=== PATIENT | female | born 2000 | race Caucasian/White ===

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

== ENCOUNTER 2019-12-01 18:13 | Emergency (ER) | payer BC ==
[~2019-12-01] VITALS: Ht 160 cm; Wt 47.6 kg
--- NOTE | 2019-12-01 18:20 | NUR ---
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
--- NOTE | 2019-12-01 18:32 | NUR ---
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
[2019-12-01] MEDS ORDERED: FAMOTIDINE (20 MG) 20 MG TABLET ONE ×2 (18:43→18:46)
[2019-12-01] MEDS ORDERED: DEXAMETHASONE SOD PHOSPHATE 10 MG/ML VIAL ONE (18:43)
[2019-12-01] MEDS: DEXAMETHASONE SOD PHOSPHATE 10 MG/ML VIAL MC ONE (18:48)
[2019-12-01] MEDS: FAMOTIDINE (20 MG) 20 MG TABLET PO ONE (18:48)
[2019-12-01] MEDS ORDERED: EPINEPHRINE (1:1000) 1 MG/ML AMPUL ONE (19:32)
[2019-12-01] MEDS: EPINEPHRINE (1:1000) 1 MG/ML AMPUL IM ONE (19:37)
--- NOTE | 2019-12-01 19:38 | NUR ---
PT TO ER BED 8. 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
--- NOTE | 2019-12-01 19:53 | NUR ---
PT IN BED 11OX4. NO NOTED RESP DISTRESS. BREATHING EVEN AND UNLABORED.
--- NOTE | 2019-12-01 20:45 | NUR ---
Patient discharged to home in stable condition. Written and verbal after care instructions given. Patient verbalizes understanding of instruction. Pt ambulatory with a steady gait
[2019-12-02 02:18] VITALS: BP 117/65
== END 2019-12-01 20:46 | disposition home or self-care (01) ==
LOC: ER 18:18
DX: L50.0 Allergic urticaria (principal); G43.909 Migraine, unspecified, not intractable, without status migrainosus; Z88.1 Allergy status to other antibiotic agents; Z91.010 Allergy to peanuts; Z88.8 Allergy status to other drugs, medicaments and biological substances
CPT/HCPCS: 96372; 99283; J0171; J1100